=== PATIENT | male | born 1965 | race Caucasian/White ===

== ENCOUNTER 2022-07-07 14:50 | Inpatient (IN) | payer SELFPAY ==
[2022-07-07] MEDS ORDERED: Fentanyl 100 MCG/2 ML VIAL ONE (17:47)
[2022-07-07] MEDS ORDERED: Ketorolac Tromethamine 30 MG/ML VIAL ONE (18:45)
[2022-07-07] MEDS ORDERED: Lorazepam 1 MG TAB ONE (18:46)
[2022-07-07] MEDS ORDERED: Morphine 4 MG/ML VIAL ONE (22:24)
[2022-07-08] MEDS ORDERED: Bisacodyl 5 MG TAB PO PRN (00:01)
[2022-07-08] MEDS ORDERED: Senokot S 8.6-50 MG TAB PO PRN (00:01)
[2022-07-08 00:10] VITALS: BMI 26.2
[2022-07-08] MEDS ORDERED: Morphine 4 MG/ML VIAL SLOW IVP PRN (00:15)
[2022-07-08] MEDS: oxyCODONE 5 MG TAB PO PRN ×4 (02:15→20:08)
[2022-07-08 06:40] LABS: #Basophils 0.1 thou/uL (0.0-0.2); #Eosinphils 0.2 thou/uL (0.0-0.7); #Lymphocytes 2.9 thou/uL (1.20-3.40); #Monocytes 1.7 thou/uL (0.11-0.59); #Neutrophils 10.6 thou/uL (1.40-6.50); %Basophils 0.6 % (0.0-1.0); %Eosinophils 1.2 % (0.0-10.0); %Lymphocytes 18.9 % (21.0-51.0); %Monocytes 11.1 % (0.0-10.0); %Neutrophils 68.1 % (42.0-75.0); Hemoglobin 16.8 g/dL (14.0-18.0); Mean Corpuscular HGB CONC 33.1 g/dL (32.0-36.0); Mean Corpuscular Hemoglobin 34.3 pg (27.0-31.0); Mean Platelet Volume 7.8 fL (7.4-10.4); Platelet Count 254 thou/uL (130-400); RBC Distribution Width 13.2 % (11.5-14.5); Red Blood Cell (RBC) Count 4.91 mill/uL (4.70-6.10); White Blood Cell (WBC) Count 15.5 thou/uL (4.8-10.8)
[2022-07-08 06:56] LABS: Anion Gap 18 mmol/L (10-20); BUN (Urea Nitrogen) 43 mg/dL (8.4-25.7); Calc. Creatinine Clearance 33 mL/min (70-130); Calcium 9.6 mg/dL (7.8-10.44); Carbon Dioxide 20 mmol/L (22-29); Chloride 100 mmol/L (98-107); Estimated GFR 26; Glucose 99 mg/dL (70-105); Potassium 3.9 mmol/L (3.5-5.1); Sodium 134 mmol/L (136-145)
[2022-07-08] MEDS: Famotidine 20 MG TAB PO SCH ×2 (07:29→08:36)
[2022-07-08] MEDS ORDERED: Acetaminophen/Codeine 30-300mg Tablet PO PRN (07:53)
[2022-07-08] MEDS ORDERED: traMADol HCl 50 MG TAB PO PRN (07:53)
[2022-07-08] MEDS ORDERED: Ondansetron PF 4 MG/2 ML Vial IVP PRN (07:53)
[2022-07-08] MEDS ORDERED: HYDROcodone/Acetaminophen 7.5/325 mg Tablet PO PRN (07:53)
[2022-07-08] MEDS ORDERED: Acetaminophen 325 MG TAB PO PRN (07:53)
[2022-07-08] MEDS ORDERED: Sodium Chloride 0.9% 1,000 ML IV SCH (08:00)
[2022-07-08] MEDS ORDERED: Acetaminophen 500 MG TAB PO SCH (09:00)
[2022-07-08] MEDS: tiZANidine HCl 4 MG TAB PO PRN ×2 (09:07→17:25)
[2022-07-08] MEDS ORDERED: hydrOXYzine 25 MG TAB PO PRN (13:22)
[2022-07-08] MEDS: Sodium Chloride 0.9% 1,000 ML IV SCH ×2 (13:48→20:08)
[2022-07-08 22:01] VITALS: BP 155/99; TEMP 98.6
[2022-07-09] MEDS ORDERED: Famotidine 20 MG TAB PO SCH (09:00)
== END 2022-07-09 02:03 | disposition left against medical advice (07) | DRG 552 ==
LOC: ERS 14:50 → T4-B 22:58
PROVIDERS: ADMIT Student in an Organized Health Care Education/Training Program; ATTEND Internal Medicine
DX: M48.061 Spinal stenosis, lumbar region without neurogenic claudication (principal); N17.9 Acute kidney failure, unspecified; I10 Essential (primary) hypertension; Z20.822 Contact with and (suspected) exposure to COVID-19; S69.92XA Unspecified injury of left wrist, hand and finger(s), initial encounter; X58.XXXA Exposure to other specified factors, initial encounter; Z53.29 Procedure and treatment not carried out because of patient's decision for other reasons; F41.9 Anxiety disorder, unspecified; M43.16 Spondylolisthesis, lumbar region; Z88.0 Allergy status to penicillin; Z88.8 Allergy status to other drugs, medicaments and biological substances; Z79.899 Other long term (current) drug therapy
CPT/HCPCS: 36415; 72131; 80048; 85025; 96374; 96375; J1885; J2270; J3010; J7050; U0003; U0005

== ENCOUNTER 2022-08-07 11:35 | Outpatient (CLI) | payer OTHER | END 2022-08-07 11:36 | disposition home or self-care (01) | LOC: RAD 11:35 | PROVIDERS: ATTEND Internal Medicine | DX: Z02.71 Encounter for disability determination (principal); M47.816 Spondylosis without myelopathy or radiculopathy, lumbar region | CPT/HCPCS: 72100 ==

== ENCOUNTER 2023-08-31 14:41 | Inpatient (IN) | payer OTHER, SELFPAY ==
[~2023-08-31 14:41] MED LIST: Iopamidol-370 76% 500 ML MDV (1 ML CHARGE) ONE
[2023-08-31] MEDS ORDERED: Morphine 4 MG/ML VIAL ONE ×2 (15:38→17:04)
[2023-08-31] MEDS ORDERED: Ondansetron PF 4 MG/2 ML Vial ONE (15:39)
[2023-08-31 16:15] LABS: #Monocytes 1.2 thou/uL (0.11-0.59); #Neutrophils 13.7 thou/uL (1.40-6.50); %Basophils 0.3 % (0.0-1.0); %Lymphocytes 5.5 % (21.0-51.0); %Monocytes 7.8 % (0.0-10.0); %Neutrophils 85.7 % (42.0-75.0); Hematocrit 41.1 % (42.0-52.0); Hemoglobin 13.6 g/dL (14.0-18.0); Mean Corpuscular HGB CONC 33.1 g/dL (32.0-36.0); Mean Corpuscular Volume 93.6 fl (78.0-98.0); Platelet Count 273 10x3/uL (130-400); RBC Distribution Width 13.7 % (11.5-14.5); Red Blood Cell (RBC) Count 4.39 mill/uL (4.70-6.10)
[2023-08-31 16:33] LABS: ALT (SGPT) 31 U/L (8-55); AST (SGOT) 31 U/L (5-34); Albumin 4.2 g/dL (3.5-5.0); Alkaline Phosphatase 114 U/L (40-110); Anion Gap 18 mmol/L (10-20); BUN (Urea Nitrogen) 12 mg/dL (8.4-25.7); Bilirubin, Total 1.4 mg/dL (0.2-1.2); Calc. Creatinine Clearance 0 mL/min (70-130); Calcium 9.3 mg/dL (7.8-10.44); Carbon Dioxide 23 mmol/L (22-29); Chloride 101 mmol/L (98-107); Estimated GFR 63; Glucose 124 mg/dL (70-105); Lipase 10 U/L (8-78); Magnesium 1.7 mg/dL (1.6-2.6); Potassium 3.7 mmol/L (3.5-5.1); Protein, Total 8.2 g/dL (6.0-8.3); Sodium 138 mmol/L (136-145)
[2023-08-31] MEDS ORDERED: Cyclobenzaprine 10 MG TAB ONE (17:04)
[2023-08-31] MEDS ORDERED: LORazepam 2 MG/ML SYR.(CARPUJECT) ONE (18:18)
[2023-08-31 18:59] LABS: Bacteria/HPF None Seen HPF (None Seen); Bilirubin Negative (Negative); Blood, Urine Negative (Negative); CAUTI Indications for Culture Pelvic or flank pain; Clarity Clear (Clear); Glucose, Urine (Dipstick) Normal (Negative); Ketone, Urine Negative (Negative); Leukocyte Negative Leu/uL (Negative); Nitrite Negative (Negative); Protein, Urine (Dipstick) 70 mg/dL (Neg-Trace); RBC/HPF 0-3 HPF (0-3); Specific Gravity, Urine 1.037 (1.002-1.036); Squamous Epithelial 0-3 HPF (0-3); Urobilinogen Normal mg/dL (Less than 2); WBC/HPF 0-3 HPF (0-3)
[2023-08-31 19:03] LABS: Urine Culture Reflex No No
[2023-08-31 19:58] LABS: Lactic Acid 1.5 mmol/L (0.5-2.2)
[2023-08-31] MEDS ORDERED: Dexamethasone 10 MG/ML VIAL ONE (20:34)
[2023-08-31] MEDS ORDERED: Nitroglycerin 2% Ointment 1 INCH/1 GM Packet ONE (20:52)
[2023-08-31] MEDS ORDERED: Acetaminophen 325 MG TAB PO PRN (21:46)
[2023-08-31] MEDS ORDERED: Ondansetron ODT 4 MG TAB PO PRN (21:46)
[2023-09-01] MEDS: Dexamethasone 4 mg/ml Vial SLOW IVP SCH ×5 (03:50→20:55)
[2023-09-01] MEDS: Morphine 4 MG/ML VIAL SLOW IVP PRN ×5 (03:57→20:55)
[2023-09-01 04:00] VITALS: BMI 30.2
[2023-09-01 07:38] LABS: Prothrombin Time 13.3 sec (12.0-14.7)
[2023-09-01] MEDS: Famotidine 20 MG TAB PO SCH ×2 (08:23→20:55)
[2023-09-01] MEDS ORDERED: FLU VACC QS2023-24(6MOS UP)/PF 60 MCG/0.5 ML SYRINGE IM ONE (09:00)
[2023-09-01 09:19] LABS: #Monocytes 0.5 thou/uL (0.11-0.59); #Neutrophils 14.7 thou/uL (1.40-6.50); %Basophils 0.1 % (0.0-1.0); %Monocytes 2.8 % (0.0-10.0); %Neutrophils 89.1 % (42.0-75.0); Hematocrit 40.4 % (42.0-52.0); Hemoglobin 13.1 g/dL (14.0-18.0); Mean Corpuscular HGB CONC 32.4 g/dL (32.0-36.0); Mean Corpuscular Volume 95.5 fl (78.0-98.0); Mean Platelet Volume 10.2 fL (7.4-10.4); Platelet Count 274 10x3/uL (130-400); RBC Distribution Width 14.2 % (11.5-14.5); Red Blood Cell (RBC) Count 4.23 mill/uL (4.70-6.10); White Blood Cell (WBC) Count 16.5 10x3/uL (4.8-10.8)
[2023-09-01 09:41] LABS: Anion Gap 15 mmol/L (10-20); BUN (Urea Nitrogen) 18 mg/dL (8.4-25.7); Calc. Creatinine Clearance 82 mL/min (70-130); Calcium 9.3 mg/dL (7.8-10.44); Carbon Dioxide 28 mmol/L (22-29); Chloride 100 mmol/L (98-107); Estimated GFR 62; Glucose 131 mg/dL (70-105); Potassium 4.6 mmol/L (3.5-5.1); Sodium 138 mmol/L (136-145)
[2023-09-01] MEDS ORDERED: Amlodipine 10 MG TAB PO SCH (17:00)
[2023-09-01] MEDS ORDERED: oxyCODONE 5 MG TAB PO PRN (18:48)
[2023-09-01] MEDS: Diazepam 2 MG TAB PO SCH (20:54)
[2023-09-01] MEDS: hydrALAZINE 10 MG TAB PO SCH (20:55)
[2023-09-01] MEDS: Acetaminophen 500 MG TAB PO SCH (20:56)
[2023-09-02] MEDS: Morphine 4 MG/ML VIAL SLOW IVP PRN (01:08)
[2023-09-02] MEDS ORDERED: ALPRAZolam 0.25 MG TAB PO SCH (03:15)
[2023-09-02] MEDS ORDERED: hydrALAZINE 20 MG/ML VIAL SLOW IVP SCH (03:30)
[2023-09-02] MEDS: Dexamethasone 4 mg/ml Vial SLOW IVP SCH ×2 (03:44→08:35)
[2023-09-02 04:04] LABS: #Monocytes 1.3 thou/uL (0.11-0.59); #Neutrophils 19.7 thou/uL (1.40-6.50); %Basophils 0.1 % (0.0-1.0); %Lymphocytes 7.6 % (21.0-51.0); %Monocytes 5.8 % (0.0-10.0); %Neutrophils 85.6 % (42.0-75.0); Hematocrit 41.6 % (42.0-52.0); Mean Corpuscular HGB CONC 33.7 g/dL (32.0-36.0); Mean Corpuscular Hemoglobin 31.2 pg (27.0-31.0); Mean Corpuscular Volume 92.7 fl (78.0-98.0); Mean Platelet Volume 10.3 fL (7.4-10.4); Platelet Count 284 10x3/uL (130-400); RBC Distribution Width 13.9 % (11.5-14.5); Red Blood Cell (RBC) Count 4.49 mill/uL (4.70-6.10)
[2023-09-02] MEDS ORDERED: Morphine 4 MG/ML VIAL SLOW IVP PRN (04:33)
[2023-09-02] MEDS ORDERED: Labetalol HCl 100 MG/20 ML VIAL SLOW IVP SCH ×2 (05:15→06:30)
[2023-09-02] MEDS: Acetaminophen 500 MG TAB PO SCH (05:36)
[2023-09-02] MEDS: hydrALAZINE 10 MG TAB PO SCH (06:36)
[2023-09-02 07:53] LABS: Anion Gap 16 mmol/L (10-20); BUN (Urea Nitrogen) 22 mg/dL (8.4-25.7); Calc. Creatinine Clearance 94 mL/min (70-130); Calcium 9.6 mg/dL (7.8-10.44); Carbon Dioxide 27 mmol/L (22-29); Chloride 98 mmol/L (98-107); Estimated GFR 74; Glucose 95 mg/dL (70-105); Potassium 3.7 mmol/L (3.5-5.1); Sodium 137 mmol/L (136-145)
[2023-09-02] MEDS: Famotidine 20 MG TAB PO SCH (08:35)
[2023-09-02] MEDS: Diazepam 2 MG TAB PO SCH (08:35)
[2023-09-02] MEDS ORDERED: Amlodipine 10 MG TAB PO SCH (09:00)
[2023-09-02 10:57] VITALS: BP 182/110; TEMP 98
[2023-09-02] MEDS ORDERED: hydrALAZINE 10 MG TAB PO SCH (14:00)
== END 2023-09-02 10:00 | disposition left against medical advice (07) | DRG 552 ==
LOC: ERS 14:41 → 2NO 20:58 → OBSVTOIN 09-01 15:46
PROVIDERS: ADMIT Student in an Organized Health Care Education/Training Program; ATTEND Hospitalist
DX: M48.061 Spinal stenosis, lumbar region without neurogenic claudication (principal); R65.10 Systemic inflammatory response syndrome (SIRS) of non-infectious origin without acute organ dysfunction; M43.16 Spondylolisthesis, lumbar region; M54.9 Dorsalgia, unspecified; G89.29 Other chronic pain; I10 Essential (primary) hypertension; F41.9 Anxiety disorder, unspecified; W18.30XA Fall on same level, unspecified, initial encounter; N20.0 Calculus of kidney; K41.90 Unilateral femoral hernia, without obstruction or gangrene, not specified as recurrent; Z88.0 Allergy status to penicillin; Z88.8 Allergy status to other drugs, medicaments and biological substances; Z79.899 Other long term (current) drug therapy; Z98.890 Other specified postprocedural states
CPT/HCPCS: 36415; 36416; 72131; 72148; 74177; 80048; 80053; 81001; 83605; 83690; 83735; 85025; 85610; 87086; J0360; J1100; J2060; J2270; J2405; Q9967

== ENCOUNTER 2023-09-09 12:55 | Emergency (ER) | payer OTHER ==
[2023-09-09] MEDS ORDERED: HYDROcodone/Acetaminophen 10/325 mg Tablet ONE (14:49)
[2023-09-09] MEDS ORDERED: Ketorolac Tromethamine 30 MG/ML VIAL ONE (15:41)
== END 2023-09-09 16:55 | disposition home or self-care (01) ==
LOC: ERS 12:55
DX: M54.50 Low back pain, unspecified (principal); G89.29 Other chronic pain; E11.9 Type 2 diabetes mellitus without complications; I10 Essential (primary) hypertension
CPT/HCPCS: 99283; J1885

== ENCOUNTER 2023-09-21 18:23 | Emergency (ER) | payer OTHER ==
[2023-09-21 19:06] LABS: #Basophils 0.1 thou/uL (0.0-0.2); #Eosinphils 0.4 thou/uL (0.0-0.7); #Monocytes 0.8 thou/uL (0.11-0.59); #Neutrophils 6.5 thou/uL (1.40-6.50); %Basophils 0.9 % (0.0-1.0); %Eosinophils 3.8 % (0.0-10.0); %Lymphocytes 20.2 % (21.0-51.0); %Monocytes 8.2 % (0.0-10.0); %Neutrophils 66.7 % (42.0-75.0); Hematocrit 42.1 % (42.0-52.0); Hemoglobin 13.6 g/dL (14.0-18.0); Mean Corpuscular HGB CONC 32.3 g/dL (32.0-36.0); Mean Corpuscular Hemoglobin 30.8 pg (27.0-31.0); Mean Corpuscular Volume 95.2 fl (78.0-98.0); Mean Platelet Volume 9.9 fL (7.4-10.4); Platelet Count 397 10x3/uL (130-400); RBC Distribution Width 14.6 % (11.5-14.5); Red Blood Cell (RBC) Count 4.42 mill/uL (4.70-6.10); White Blood Cell (WBC) Count 9.7 10x3/uL (4.8-10.8)
[2023-09-21 19:28] LABS: Bacteria/HPF None Seen HPF (None Seen); Bilirubin Negative (Negative); Blood, Urine Negative (Negative); CAUTI Indications for Culture Dysuria,urgency,freq; Clarity Clear (Clear); Glucose, Urine (Dipstick) Normal (Negative); Ketone, Urine Negative (Negative); Leukocyte Negative Leu/uL (Negative); Nitrite Negative (Negative); Protein, Urine (Dipstick) Negative (Neg-Trace); RBC/HPF None Seen HPF (0-3); Specific Gravity, Urine 1.003 (1.002-1.036); Squamous Epithelial None Seen HPF (0-3); Urobilinogen Normal mg/dL (Less than 2); WBC/HPF None Seen HPF (0-3); pH, Urine 6.5 (5.0-9.0)
[2023-09-21 19:30] LABS: Urine Culture Reflex No No
[2023-09-21 19:34] LABS: ALT (SGPT) 17 U/L (8-55); AST (SGOT) 19 U/L (5-34); Albumin 4.3 g/dL (3.5-5.0); Alkaline Phosphatase 82 U/L (40-110); Anion Gap 14 mmol/L (10-20); BUN (Urea Nitrogen) 14 mg/dL (8.4-25.7); Bilirubin, Total 0.5 mg/dL (0.2-1.2); Calc. Creatinine Clearance 0 mL/min (70-130); Calcium 9.9 mg/dL (7.8-10.44); Carbon Dioxide 27 mmol/L (22-29); Chloride 102 mmol/L (98-107); Estimated GFR 68; Globulin 3.8 g/dL (2.4-3.5); Glucose 89 mg/dL (70-105); Lipase 20 U/L (8-78); Potassium 4.7 mmol/L (3.5-5.1); Protein, Total 8.1 g/dL (6.0-8.3); Sodium 138 mmol/L (136-145)
[2023-09-21] MEDS ORDERED: Acetaminophen 500 MG TAB ONE (20:18)
== END 2023-09-21 20:15 ==
LOC: ERS 18:23 → EEVIPCON 18:23 → ERS 20:15
DX: S00.83XA Contusion of other part of head, initial encounter (principal); S90.32XA Contusion of left foot, initial encounter; I10 Essential (primary) hypertension; Z79.899 Other long term (current) drug therapy; W22.8XXA Striking against or struck by other objects, initial encounter
CPT/HCPCS: 70450; 70486; 72125; 80053; 81001; 83690; 85025; 93005

== ENCOUNTER 2023-11-25 12:44 | Outpatient (CLI) | payer OTHER | END 2023-11-25 12:45 | disposition home or self-care (01) | LOC: BICMRI 12:44 | PROVIDERS: ATTEND Family Medicine | DX: S46.812A Strain of other muscles, fascia and tendons at shoulder and upper arm level, left arm, initial encounter (principal); S43.402A Unspecified sprain of left shoulder joint, initial encounter; M24.9 Joint derangement, unspecified; M19.012 Primary osteoarthritis, left shoulder; M25.412 Effusion, left shoulder ==

== ENCOUNTER 2024-05-02 12:36 | Emergency (ER) | payer OTHER ==
[2024-05-02] MEDS ORDERED: Iopamidol-370 76% 500 ML MDV (1 ML CHARGE) ONE (12:49)
[2024-05-02 13:42] LABS: #Basophils 0.11 10x3/uL (0.0-0.2); %Basophils 0.9 % (0.0-1.0); %Eosinophils 5.1 % (0.0-10.0); %Lymphocytes 16.4 % (21.0-51.0); %Monocytes 12.6 % (0.0-10.0); %Neutrophils 64.5 % (42.0-75.0); Hematocrit 43.3 % (42.0-52.0); Hemoglobin 13.9 g/dL (14.0-18.0); Mean Corpuscular HGB CONC 32.1 g/dL (32.0-36.0); Mean Corpuscular Hemoglobin 30.3 pg (27.0-31.0); Mean Corpuscular Volume 94.3 fL (78.0-98.0); Mean Platelet Volume 9.9 fL (7.4-10.4); Platelet Count 335 10x3/uL (130-400); RBC Distribution Width 14.5 % (11.5-14.5); Red Blood Cell (RBC) Count 4.59 mill/uL (4.70-6.10)
[2024-05-02 13:48] LABS: Bacteria/HPF None Seen HPF (None Seen); Bilirubin Negative (Negative); Blood, Urine Negative (Negative); CAUTI Indications for Culture Alt mental st,lethar; Clarity Clear (Clear); Glucose, Urine (Dipstick) Normal (Negative); Ketone, Urine Negative (Negative); Leukocyte Negative Leu/uL (Negative); Nitrite Negative (Negative); Protein, Urine (Dipstick) Negative (Neg-Trace); RBC/HPF 0-3 HPF (0-3); Squamous Epithelial None Seen HPF (0-3); Urobilinogen Normal mg/dL (Less than 2); WBC/HPF None Seen HPF (0-3)
[2024-05-02 13:49] LABS: Urine Culture Reflex No No
[2024-05-02 14:25] LABS: ALT (SGPT) 23 U/L (8-55); AST (SGOT) 16 U/L (5-34); Albumin 4.1 g/dL (3.5-5.0); Alkaline Phosphatase 77 U/L (40-110); Anion Gap 14 mmol/L (10-20); BUN (Urea Nitrogen) 12 mg/dL (8.4-25.7); Bilirubin, Total 0.3 mg/dL (0.2-1.2); Calc. Creatinine Clearance 0 mL/min (70-130); Calcium 10.1 mg/dL (7.8-10.44); Carbon Dioxide 28 mmol/L (22-29); Chloride 104 mmol/L (98-107); Estimated GFR 70; Globulin 3.9 g/dL (2.4-3.5); Glucose 97 mg/dL (70-105); Potassium 4.4 mmol/L (3.5-5.1); Sodium 142 mmol/L (136-145)
[2024-05-02 14:50] LABS: Troponin I Less than 0.010 ng/mL (< 0.028)
[2024-05-02] MEDS ORDERED: Ketorolac Tromethamine 30 MG (1 mL) VIAL ONE (15:07)
== END 2024-05-02 16:15 ==
LOC: ERS 12:36
DX: K40.90 Unilateral inguinal hernia, without obstruction or gangrene, not specified as recurrent (principal); G89.29 Other chronic pain; M54.9 Dorsalgia, unspecified; I10 Essential (primary) hypertension
CPT/HCPCS: 36415; 74177; 80053; 81001; 84484; 85025; 93005; 96374; J1885; Q9967